=== PATIENT | male | born 1945 | race African-American/Black ===

== ENCOUNTER 2017-04-05 11:22 | Observation (INO) | payer OTHER ==
[~2017-04-05] VITALS: Ht 167.6 cm; Wt 74.8 kg
[~2017-04-05 11:22] MED LIST: ALDACTONE25 MG PO; ASPIRIN81 M2 PO; CARVEDILOL12.5 MG PO; CENTRUM SILVER1 EAC4 PO; FISH OIL 1,001000 M2 PO; FLOMAX0.4 MG PO; FLONASE 0.05%50 MCG NASAL; GLYBURIDE 2.52.5 MG PO; LISINOPRIL10 MG PO; METFORMIN HCL500 MG PO; ZOCOR20 MG PO
[2017-04-05 11:26] VITALS: BP 126/70
[2017-04-05 12:10] LABS: ABSOLUTE EOSINOPHILS 0.3 thou/uL (0.0-0.7); ABSOLUTE LYMPHOCYTES 2.7 thou/uL (0.8-5.3); ABSOLUTE MONOCYTES 0.7 thou/uL (0.0-1.2); ABSOLUTE NEUTROPHILS 7.8 thou/uL (1.6-8.1); BASOPHILS 0.4 %; EOSINOPHILS 2.5 %; HEMATOCRIT 35.9 % (42.0-52.0); HEMOGLOBIN 11.6 gm/dL (14.0-18.0); LYMPHOCYTES 23.7 %; MCH 26.8 pg (26.0-34.0); MCHC 32.2 g/dL (28.0-37.0); MCV 83.1 fL (80.0-100.0); MONOCYTES 6.3 %; MPV 8.2 fl. (7.2-11.1); NUCLEATED RBCS 0 /100WBC; PLATELET COUNT* 257 thou/uL (150-400); POLYS 67.1 %; RBC 4.32 mil/uL (4.50-6.00); RDW-CV 15.3 % (10.5-14.5); WBC 11.6 thou/uL (4.0-11.0)
[2017-04-05 12:13] LABS: ANION GAP 5 mmol/L (7-16); BUN 25 mg/dL (7-18); CALCIUM 9.2 mg/dL (8.5-10.1); CHLORIDE 104 mmol/L (98-107); CO2 26 mmol/L (21-32); CREATININE 1.3 mg/dL (0.6-1.3); GLUCOSE 83 mg/dL (70-99); POTASSIUM 5.3 mmol/L (3.5-5.1); SODIUM 135 mmol/L (136-145)
[2017-04-05 12:21] LABS: ALBUMIN 3.8 g/dL (3.4-5.0); ALKALINE PHOSPHATASE 46 U/L (46-116); SGOT 18 U/L (15-37); SGPT 25 U/L (30-65); TOTAL BILIRUBIN 0.3 mg/dL (<0.1-1.0); TOTAL PROTEIN 7.6 g/dL (6.4-8.2); TROPONIN-I LEVEL <0.06 ng/mL (<0.06)
[2017-04-05 12:21] LABS: BE -6.3 mmol/L (-2 to +3); HCO3 17.9 mmol/L (22.0-26.0); PCO2 31.1 mmHg (35.0-45.0); PO2 89.3 mmHg (75.0-100.0); pH 7.377 (7.340-7.450)
[2017-04-05 12:46] LABS: URINE BILIRUBIN NEGATIVE (Negative); URINE BLOOD 1+ (Negative); URINE CLARITY CLEAR; URINE COLOR YELLOW; URINE GLUCOSE-RANDOM NEGATIVE (Negative); URINE KETONES NEGATIVE (Negative); URINE LEUKOCYTES-REFLEX NEGATIVE (Negative); URINE NITRITE-REFLEX NEGATIVE (Negative); URINE PROTEIN NEGATIVE (Negative); URINE SPECIFIC GRAVITY <= 1.005 (1.005-1.030); URINE UROBILINOGEN 0.2 E.U./dl (0.2-1.0)
[2017-04-05 12:52] LABS: INFLUENZA A ANTIGEN None Detected (None Detect); INFLUENZA B ANTIGEN None Detected (None Detect)
[2017-04-05 12:56] LABS: BACTERIA-REFLEX 1-9 Few /HPF (None Seen); CASTS None Seen /LPF (None Seen); CRYSTALS None Seen /LPF (None Seen); MUCUS 0-3 Light strn/LPF (None Seen); SQUAMOUS 0-3 Few /LPF (0-3); URINE RBC 3-10 Few /HPF (0-2); URINE WBC-REFLEX 0-5 Rare /HPF (0-5)
[2017-04-05 16:22] VITALS: BP 113/95
[2017-04-05 16:30] VITALS: BP 119/65
--- NOTE | 2017-04-05 16:32 | EKG ---
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 : 1945 Requested By: Kayleen Colon Order Number: [id number] MD: Conrad Sloan Measurements Intervals Coats Rate: 65 P: 60 MN: 146 QRS: -17 QRSD: 92 T: 43 QT: 387 QTc: 403 Interpretive Statements Sinus rhythm Probable left atrial enlargement Borderline left axis deviation poor r wave progression Compared to ECG 05/18/2016 13:05:35 No significant changes Electronically Signed On 04-05-2017 16:31:46 ELEMENTARY TEACHER by Conrad Sloan [email or web address] <ELECTRONICALLY SIGNED> By: Conrad Sloan MD, [facility] 04/05/17 1631 [id number] Conrad Sloan MD, [facility] /EPI
--- NOTE | 2017-04-05 17:14 | NUR ---
RECIEVED REPORT FROM LILLIAN RN IN ER OF EXPECTED TRANSFER AT 1615 OF EXPECTED TRANSFER- DX- HYPERKALEMIA WITH ASSOCIATED WEAKNESS- PT REPORTED TO HAVE SEEN PCP IN OFFICE AND INSTRUCTED TO COME HERE POST EKG ABNORMALITY NOTED- PT ARRIVED TO ROOM 213 VIA CART- SBA TO BED- CARDAIC MONITOR PLACED INDICATED, TRACING SR- PT A&O X4- CONTINENT OF BOWEL AND BLADDER- UP AD-JOSE IN ROOM WITH STEADY GAIT NOTED- EXPIRATORY WHEEZING NOTED TO UPPER LOBES, DIMINISHED IN BASES, RESP EVEN AND UN-LABORED- DYSPNEA NOTED ON EXERTION- VS 98.0 18 119/65 68 93% ON RA- ABDOMAN SOFT/ROUND/NON-TENDER, BS X4 QUADS- PT REPORTS TO HAVE HAD BM TODAY- IV NOTED TO RIGHT AC INTACT WITH IVF INFUSING PRESCRIBED- SKIN C/D/I- BS UPON ADMISSION NOTED AT 103- KAYEXELATE REPORTED TO HAVE BEEN GIVEN IN ER R/T HYPERKALEMIA PRIOR TO TRANSPORT- PT DENIES ANY C/O PAIN/DISCOMFORT AT THIS TIME- CALL LIGHT AND PERSONAL BELONGINGS WITH IN REACH- ALL NEEDS MET AT THIS TIME-WCTM
[2017-04-05 20:00] VITALS: BP 94/59
[2017-04-05] MEDS ORDERED: GLUCOTROL XL2.5 MG PO (20:19)
[2017-04-06] VITALS: BP 109/58
[2017-04-06 04:00] VITALS: BP 91/54
[2017-04-06 05:37] LABS: ABSOLUTE BASOPHILS 0.1 thou/uL (0.0-0.2); ABSOLUTE EOSINOPHILS 0.3 thou/uL (0.0-0.7); ABSOLUTE LYMPHOCYTES 2.1 thou/uL (0.8-5.3); ABSOLUTE MONOCYTES 0.7 thou/uL (0.0-1.2); ABSOLUTE NEUTROPHILS 4.5 thou/uL (1.6-8.1); BASOPHILS 1.1 %; EOSINOPHILS 3.9 %; HEMATOCRIT 30.1 % (42.0-52.0); LYMPHOCYTES 27.3 %; MCH 27.3 pg (26.0-34.0); MCHC 33.1 g/dL (28.0-37.0); MCV 82.5 fL (80.0-100.0); MONOCYTES 9.3 %; MPV 8.2 fl. (7.2-11.1); NUCLEATED RBCS 0 /100WBC; PLATELET COUNT* 222 thou/uL (150-400); POLYS 58.4 %; RBC 3.65 mil/uL (4.50-6.00); RDW-CV 14.9 % (10.5-14.5); WBC 7.7 thou/uL (4.0-11.0)
[2017-04-06 05:46] LABS: ANION GAP 8 mmol/L (7-16); BUN 17 mg/dL (7-18); CALCIUM 8.4 mg/dL (8.5-10.1); CHLORIDE 110 mmol/L (98-107); CO2 24 mmol/L (21-32); GLUCOSE 97 mg/dL (70-99); POTASSIUM 4.9 mmol/L (3.5-5.1); SODIUM 142 mmol/L (136-145); TROPONIN-I LEVEL <0.06 ng/mL (<0.06)
--- NOTE | 2017-04-06 06:55 | NUR ---
ASSUMED CARE AROUND 1930. PT A/OX4 AND VERY PLEASANT. TELE MONITOR TRACING SR/PAC'S, RUN OF PVC-5 BEAT AROUND 0527. ON ROOM AIR. IVF INFUSING ORDERED. DENIES PAIN. UP AD JOSE. VSS, AFEBRIL. NO CONCERNS VOICED DURING SHIFT. CALL LIGHT IN REACH, WILL CONTINUE WITH PLAN OF CARE.
[2017-04-06 08:00] VITALS: BP 109/65
[2017-04-06 11:30] VITALS: BP 106/61
--- NOTE | 2017-04-06 13:49 | NUR ---
ASSUMED CARE OF PT AT 0730. PT RESTING IN BED WAITING FOR BREAKFAST. PT A&0X4. DENIES ANY CHEST PAIN, PALPITATIONS OR SHORTNESS OF BREATH AT THIS TIME. PT TRACING SR WITH OCCASIONAL PVC'S ON THE SAMPLE HAND. PT ON RA SAT 97%. IVF. PT UP AD JOSE IN ROOM. PT GOAL FOR TODAY IS TO HAVE CTA TO RULE OUT PE AND ECHO AND IF RESULTS NEGATIVE- DISCHARGE HOME. AM ASSESSMENT CHARTED. MEDICATIONS PER MAR. PT REPOSITIONS SELF IN BED. HOURLY ROUNDING OBSERVED. BED IN LOW POSITION. CALL LIGHT WITHIN REACH. WILL CONTINUE PLAN OF CARE.
--- NOTE | 2017-04-06 14:59 | NUR ---
Nutrition: Consult received for 2-3# wt loss and poor appetite. Pt stated he lost a couple of lbs d/t poor appetite because of the flu. He stated he is eating much better today. Regular diet. Wt: 165#. He stated he wants to keep those couple of lbs off too because he has DM and knows that losing those couple of lbs will not hurt him. He stated his BG usually runs 100-120. He follows a low CHO diet and watches what he eats. He is knowledgable about his diet and lifestyle. Consider low risk.
[2017-04-06 15:30] VITALS: BP 96/54
[2017-04-06 15:36] VITALS: BP 106/61
--- NOTE | 2017-04-06 16:57 | 2DMMODE ---
[place] [address] 2 D/M-MODE ECHOCARDIOGRAM Name: HEMA BALES Room: [address] IN [facility]#: [id number] Admission: 04/05/17 Attend Phys: Jaquan Hamilton, Discharge: Date of : 41 Date of Service: 04/06/17 1657 Report #: [id number] THIS REPORT FOR: //name// APPROVED REPORT Study performed: 04/06/2017 14:00:41 EXAM: Comprehensive 2D, Doppler, and color-flow Echocardiogram Patient Location: In-Patient Room #: [facility] Status: routine BSA: 1.84 HR: 63 bpm BP: 109/65 mmHg Rhythm: NSR Other Information Study Quality: Good Indications Congestive Heart Failure HYPERKALEMIA, WEAKNESS 2D Dimensions LVEF(%): 42.48 (>50%) IVSd: 10.02 (7-11mm) LVOT Diam: 20.22 (18-24mm) LVDd: 54.64 mm PWd: 9.53 (7-11mm) Ascending Ao: 32.69 (22-36mm) LVDs: 43.10 (25-40mm) Aortic Root: 31.14 mm Michaud's LVEF: 42.48 % Volumes Left Atrial Volume (Systole) LA ESV Index: 40.00 mL/m2 Aortic Valve AoV Peak Luis Fernando.: 1.49 m/s AO Peak Gr.: 8.84 mmHg LVOT Max P.18 mmHg AO Mean Gr.: 4.28 mmHg LVOT Mean P.41 mmHg LVOT Max V: 0.89 m/s AO V2 VTI: 26.14 cm LVOT Mean V: 0.53 m/s IVORY (VTI): 2.71 cm2 LVOT V1 VTI: 22.05 [place] [address] 2 D/M-MODE ECHOCARDIOGRAM Name: HEMA BALES Room: [address] IN [facility].#: [id number] Admission: 04/05/17 Attend Phys: Jaquan Hamilton, Discharge: Date of : 41 Date of Service: 04/06/17 1657 Report #: [id number] E/A Ratio: 0.63 MV Decel. Time: 178.19 ms MV E Max Luis Fernando.: 0.64 m/s MV PHT: 51.67 ms MVA (PHT): 4.26 cm2 TDI E/Lateral E': 9.14 E/Medial E': 9.14 Medial E' Luis Fernando.: 0.07 m/s Lateral E' Luis Fernando.: 0.07 m/s Pulmonary Valve PV Peak Luis Fernando.: 1.07 m/s PV Peak Gr.: 4.57 mmHg Tricuspid Valve TR Peak Gr.: 20.01 mmHg RVSP: 25.00 mmHg Left Ventricle The left ventricle is normal size. There is global hypokinesis of the left ventricle. There is normal left ventricular wall thickness. Left ventricular systolic function is mildly decreased. LVEF is 35-40%. Grade I - abnormal relaxation pattern. Right Ventricle Right ventricle is dilated. The right ventricular systolic function is normal. Atria Left atrium is mildly dilated. Right atrium is mildly dilated. Aortic Valve The aortic valve is normal in structure. Trace aortic regurgitation. There is no aortic valvular stenosis. Mitral Valve The mitral valve is normal in structure. Trace mitral regurgitation. No evidence of mitral valve stenosis. Tricuspid Valve The tricuspid valve is normal in structure. Trace tricuspid regurgitation. The RVSP is ____25___ mmHg. Pulmonic Valve The pulmonary valve is normal in structure. There is no pulmonic valvular [place] [address] 2 D/M-MODE ECHOCARDIOGRAM Name: HEMA BALES Room: [address] [place] ..#: [id number] Admission: 04/05/17 Attend Phys: Jaquan Hamilton, Discharge: Date of : 41 Date of Service: 04/06/17 1657 Report #: [id number] Great Vessels The aortic root is normal in size. IVC is normal in size and collapses with >50% inspiration Pericardium There is no pericardial effusion. <Conclusion> LVEF is 35-40%. There is global hypokinesis of the left ventricle. Left atrium is mildly dilated. <ELECTRONICALLY SIGNED> By: Conrad Sloan MD, FACC 04/06/171656 56 56 Conrad Sloan MD, FACC /INF
--- NOTE | 2017-04-06 17:13 | NUR ---
PT HAD ECHO TODAY- RESULTS BACK AT 35-40%. PT ALSO HAD CTA. RESULTS BACK NEGATIVE FOR PE. DR REARDON NOTIFIED OF RESULTS. ORDERS RECEIVED FOR DISCHARGE AND PT TO FOLLOW UP WITH OWN LIVESTOCK SHOWMAN. PT TO NOT TAKE ALDACTONE OR LISINOPRIL UNTIL SEEN BY PCP. PT ALSO NOT TO TAKE METFORMIN FOR 48 HOURS PT RECEIVED CONTRAST TODAY FOR CTA. PT COMMUNICATES UNDERSTANDING OF THIS MEDICATION TEACHING. DISCHARGE INSTRUCTIONS, CARE NOTES AND FOLLOW UP APPTS GIVEN TO PT. PT COMMUNICATES UNDERSTANDING OF DISCHARGE TEACHING. IV'S AND SKEIN WASHER REMOVED. PT DISCHARGED WITH ALL BELONGINGS AND PAPERWORK VIA WHEELCHAIR WITH NURSING STAFF TO FRIEND OWN PERSONAL VEHICLE.
== END 2017-04-06 17:18 | disposition home or self-care (01) ==
LOC: M.ERS 11:22 → M.TBA-ER 15:33 → M.2W 15:33
PROVIDERS: Personal Emergency Response Attendant; ADMIT Internal Medicine
DX: N17.9 Acute kidney failure, unspecified (principal); E87.5 Hyperkalemia; A08.4 Viral intestinal infection, unspecified; M19.90 Unspecified osteoarthritis, unspecified site; I25.10 Atherosclerotic heart disease of native coronary artery without angina pectoris; E86.0 Dehydration; I10 Essential (primary) hypertension; E78.5 Hyperlipidemia, unspecified; I25.2 Old myocardial infarction; Z95.5 Presence of coronary angioplasty implant and graft; Z87.891 Personal history of nicotine dependence

== ENCOUNTER 2018-03-14 20:22 | Emergency (ER) | payer OTHER ==
[~2018-03-14] VITALS: Ht 167.6 cm; Wt 76.2 kg
[~2018-03-14 20:22] MED LIST changes: +GLUCOTROL XL2.5 MG PO
[2018-03-14] MEDS ORDERED: NORCO 7.5-3251 EACH PO (21:43)
[2018-03-14 22:15] VITALS: BP 109/61
== END 2018-03-14 22:15 | disposition home or self-care (01) ==
LOC: M.ERS 20:22
DX: S50.311A Abrasion of right elbow, initial encounter (principal); S49.81XA Other specified injuries of right shoulder and upper arm, initial encounter; I10 Essential (primary) hypertension; E78.5 Hyperlipidemia, unspecified; W10.8XXA Fall (on) (from) other stairs and steps, initial encounter; Y93.89 Activity, other specified; Y92.89 Other specified places as the place of occurrence of the external cause; Y99.8 Other external cause status